=== PATIENT | female | born 1985 | race Caucasian/White ===

== ENCOUNTER 2016-07-15 02:14 | Emergency (ER) | payer BC ==
[2016-07-15 03:02] LABS: Appearance,Urine Clear (Clear); Bilirubin,Urine Negative (Negative); Glucose,Urine (UA) Negative (Negative); Ketones,Urine Negative (Negative); Leukocyte Esterase,Urine Negative (Negative); Nitrite,Urine Negative (Negative); PH, Urine 6.5 (5.0-8.0); Protein,Urine Negative (Negative); UA Billing (MACRO vs. MICRO) CHEM; Urobilinogen,Urine <2.0 mg/dL (<2.0)
[2016-07-15 03:03] LABS: Basophils # (A) 0.2 k/uL (0-0.2); Basophils % (A) 1 %; CH 30.2; CHCM 33.7; Eosinophils # (A) 1.7 k/uL (0-0.7); Eosinophils % (A) 12 %; HCT 44.6 % (34.0-46.0); HDW 2.48; HGB 14.4 gm/dL (11.4-16.0); Luc # (Auto) 0.27; Luc % (Auto) 2; Lymphocytes # (A) 3.5 k/uL (1.0-4.8); Lymphocytes % (A) 25 %; MCH 29.1 pg (25.0-35.0); MCHC 32.4 g/dL (31.0-37.0); MCV 89.9 fL (80.0-100.0); Mean Platelet Volume 7.2; Monocytes # (A) 0.6 k/uL (0-1.0); Monocytes % (A) 4 %; Neutrophils # (A) 7.8 k/uL (1.3-7.7); Neutrophils % (A) 56 %; RBC 4.96 m/uL (3.80-5.40); RDW 13.4 % (11.5-15.5); WBC (Perox) 13.67
[2016-07-15] MEDS ORDERED: SODIUM CHLORIDE 0.9% 1,000 ML IV ONE (03:03)
[2016-07-15] MEDS ORDERED: ACETAMINOPHEN IV (For NPO) 1,000 MG in EMPTY BAG 1 BAG IVPB STA (03:03)
[2016-07-15 03:10] LABS: ALT 23 U/L (9-52); AST 18 U/L (14-36); Alkaline Phosphatase 62 U/L (38-126); Amylase 72 U/L (30-110); Anion Gap 10 mmol/L; Blood Urea Nitrogen 16 mg/dL (7-17); Calcium 10.7 mg/dL (8.4-10.2); Carbon Dioxide 26 mmol/L (22-30); Chloride 106 mmol/L (98-107); Glucose 91 mg/dL (74-99); Non-African American GFR(MDRD) >60 (>60 ml/min/1.73 sqM); Potassium 4.1 mmol/L (3.5-5.1); Sodium 142 mmol/L (137-145); Total Bilirubin 0.3 mg/dL (0.2-1.3); Total Protein 7.4 g/dL (6.3-8.2)
--- NOTE | 2016-07-15 03:16 | ED ---
Abdominal Pain HPI - General Source: patient, RN notes reviewed Mode of arrival: ambulatory Limitations: no limitations <Oliva Jones - Last Filed: 07/15/16 04:24> <Tiburcio Barnett - Last Filed: 07/15/16 06:07> - General Chief Complaint: Abdominal Pain Stated Complaint: poss galbladder Time Seen by Provider: 07/15/16 02:40 - History of Present Illness Initial Comments: Patient is a 30-year-old female presents to the emergency room for evaluation of abdominal pain. Patient states she began having abdominal pain on and off for the past few weeks. Patient states she began having worsening abdominal pain in her right upper quadrant after eating a blooming onion from [facility] Thursday night. Patient states the pain did subside after while. Patient states the pain came back tonight's. Patient states that she did have little [employer] pizza this evening for dinner. Patient states that the pain woke her up from her sleep and has not subsided. Patient states the pain is slightly lessened since she's been here. Patient states having 6 out of 10 constant right upper quadrant pain. Patient denies any known history of gallbladder issues or gallbladder stones. Patient denies nausea or vomiting. Patient denies constipation or diarrhea. Patient denies any discoloration of the stools. Patient denies headache or dizziness. Patient denies chest pain or shortness of breath. (Oliva Jones) - Related Data Home Medications Medication Instructions Recorded Confirmed Pnv with Ca,No.72/Iron/FA 1 tab PO DAILY 03/04/14 09/06/14 [ Plus Multivitamin Tab] Albuterol Inhaler [Ventolin 1 - 2 puff INHALATION Q6HR PRN 09/06/14 09/06/14 Inhaler] Albuterol Nebulized [Ventolin 2.5 mg INHALATION RT-Q4H PRN 09/06/14 09/06/14 Nebulized] Cholecalciferol [Vitamin D3] 5,000 unit PO DAILY 09/06/14 09/06/14 Norethindrone 0.35 mg PO DAILY 09/06/14 09/06/14 [place] 2 cap PO BID 09/06/14 09/06/14 Previous Rx's Medication Instructions Recorded Albuterol Nebulized [Ventolin 2.5 mg INHALATION RT-QID #120 nebu 09/10/14 Nebulized] Bisacodyl [Dulcolax] 5 mg PO DAILY PRN #0 tablet. 09/10/14 Budesonide [Pulmicort] 0.5 mg INHALATION RT-BID PRN #60 09/10/14 nebu Enoxaparin [Lovenox] 120 mg SQ Q12H #14 syringe 09/10/14 Famotidine [Pepcid] 20 mg PO BID #60 tab 09/10/14 Montelukast [Singulair] 10 mg PO HS #30 tab 09/10/14 Warfarin [Coumadin] 5 mg PO DAILY@1800 #60 tab 09/10/14 predniSONE 10 mg PO DAILY #60 tab 09/10/14 Amoxic-Pot Clav 875-125Mg 1 tab PO Q12HR #20 tablet 07/15/16 [Augmentin 875-125] Hydrocodone/Acetaminophen [[place] 1 each PO Q6HR PRN #20 tab 07/15/16 5-325] Ibuprofen [Motrin] 800 mg PO Q6HR PRN #20 tab 07/15/16 Allergies Allergy/AdvReac Type Severity Reaction Status Date / Time azithromycin [From Zithromax] Allergy Rash/Hives Verified 07/15/16 02:20 Review of Systems ROS Other: All systems not noted in ROS Statement are negative. <Oliva Jones - Last Filed: 07/15/16 04:24> ROS Other: All systems not noted in ROS Statement are negative. <Tiburcio Barnett - Last Filed: 07/15/16 06:07> ROS Statement: Those systems with pertinent positive or pertinent negative responses have been documented in the HPI. Past Medical History Past Medical History: Asthma, Pulmonary Embolus (PE) History of Any Multi-Drug Resistant Organisms: None Reported Additional Past Surgical History / Comment(s): d & c 2011 Past Anesthesia/Blood Transfusion Reactions: No Reported Reaction Past Psychological History: No Psychological Hx Reported Smoking Status: Former smoker Past Alcohol Use History: None Reported Past Drug Use History: None Reported - Past Family History Mother Family Medical History: Cancer <Oliva Jones - Last Filed: 07/15/16 04:24> General Exam Limitations: no limitations General appearance: alert, in no apparent distress Head exam: Present: atraumatic, normocephalic, normal inspection Eye exam: Present: normal appearance ENT exam: Present: normal exam Neck exam: Present: normal inspection Respiratory exam: Present: normal lung sounds bilaterally. Absent: respiratory distress Cardiovascular Exam: Present: regular rate, normal rhythm, normal heart sounds GI/Abdominal exam: Present: soft, tenderness (Right upper quadrant), normal bowel sounds. Absent: distended, guarding, rebound, rigid Extremities exam: Present: normal inspection Back exam: Present: normal inspection Neurological exam: Present: alert, oriented X3, CN II-XII intact, normal gait Psychiatric exam: Present: normal affect, normal mood Skin exam: Present: warm, dry, intact, normal color. Absent: rash <Oliva Jones - Last Filed: 07/15/16 04:24> <Tiburcio Barnett - Last Filed: 07/15/16 06:07> - General Exam Comments Initial Comments: Sitting in exam room, no acute distress. (Oliva Jones) Course <Oliva Jones - Last Filed: 07/15/16 04:24> <Tiburcio Barnett - Last Filed: 07/15/16 06:07> Vital Signs 07/15/16 07/15/16 02:17 05:35 Temperature 97.7 F 97.0 F L Pulse Rate 80 69 Respiratory 18 16 Rate Blood Pressure 137/98 130/83 O2 Sat by Pulse 98 96 Oximetry - Reevaluation(s) Reevaluation #1: 07/15/16 05:48 I did reevaluate the patient she states she is feeling much improved though she still has right upper quadrant tenderness. I did recommend admission with surgical consultation. Patient does not want to stay. (Tiburcio Barnett) Medical Decision Making - Lab Data Result diagrams: 07/15/16 02:48 07/15/16 02:48 <Oliva Jones - Last Filed: 07/15/16 04:24> - Lab Data Result diagrams: 07/15/16 02:48 07/15/16 02:48 - Radiology Data Radiology results: report reviewed (I did review the imaging and report. There is evidence of gallstones but no evidence of any thickening of the gallbladder wall or common bile duct dilatation. There was evidence for sonographic Jimenez sign ), image reviewed <Tiburcio Barnett - Last Filed: 07/15/16 06:07> - Medical Decision Making Patient is a 30-year-old female presents emergency room for evaluation of right upper quadrant pain. White count elevated. Liver enzymes within normal limits. Ultrasound results pending. Case discussed the past on to Dr. Barnett at 4:25 AM. (Oliva Jones) - Lab Data Lab Results 07/15/16 07/15/16 07/15/16 Range/Units 02:48 02:48 02:48 WBC (3.8-10.6) k/uL RBC (3.80-5.40) m/uL Hgb (11.4-16.0) gm/dL Hct (34.0-46.0) % MCV (80.0-100.0) fL MCH (25.0-35.0) pg MCHC (31.0-37.0) g/dL RDW (11.5-15.5) % Plt Count (150-450) k/uL Neutrophils % % Lymphocytes % % Monocytes % % Eosinophils % % Basophils % % Neutrophils # (1.3-7.7) k/uL Lymphocytes # (1.0-4.8) k/uL Monocytes # (0-1.0) k/uL Eosinophils # (0-0.7) k/uL Basophils # (0-0.2) k/uL Sodium 142 (137-145) mmol/L Potassium 4.1 (3.5-5.1) mmol/L Chloride 106 (98-107) mmol/L Carbon Dioxide 26 (22-30) mmol/L Anion Gap 10 mmol/L BUN 16 (7-17) mg/dL Creatinine 0.80 (0.52-1.04) mg/dL Est GFR (MDRD) Af Amer >60 (>60 ml/min/1.73 sqM) Est GFR (MDRD) Non-Af >60 (>60 ml/min/1.73 sqM) Glucose 91 (74-99) mg/dL Calcium 10.7 H (8.4-10.2) mg/dL Total Bilirubin 0.3 (0.2-1.3) mg/dL AST 18 (14-36) U/L ALT 23 (9-52) U/L Alkaline Phosphatase 62 (38-126) U/L Total Protein 7.4 (6.3-8.2) g/dL Albumin 4.1 (3.5-5.0) g/dL Amylase 72 (30-110) U/L Lipase 95 (23-300) U/L Urine Color Light Yellow Urine Appearance Clear (Clear) Urine pH 6.5 (5.0-8.0) Ur Specific [place] 1.010 (1.001-1.035) Urine Protein Negative (Negative) Urine Glucose (UA) Negative (Negative) Urine Ketones Negative (Negative) Urine Blood Negative (Negative) Urine Nitrite Negative (Negative) Urine Bilirubin Negative (Negative) Urine Urobilinogen <2.0 (<2.0) mg/dL Ur Leukocyte Esterase Negative (Negative) Urine HCG, Qual Not Detected (Not Detectd) 07/15/16 Range/Units 02:48 WBC 14.0 H (3.8-10.6) k/uL RBC 4.96 (3.80-5.40) m/uL Hgb 14.4 (11.4-16.0) gm/dL Hct 44.6 (34.0-46.0) % MCV 89.9 (80.0-100.0) fL MCH 29.1 (25.0-35.0) pg MCHC 32.4 (31.0-37.0) g/dL RDW 13.4 (11.5-15.5) % Plt Count 264 (150-450) k/uL Neutrophils % 56 % Lymphocytes % 25 % Monocytes % 4 % Eosinophils % 12 % Basophils % 1 % Neutrophils # 7.8 H (1.3-7.7) k/uL Lymphocytes # 3.5 (1.0-4.8) k/uL Monocytes # 0.6 (0-1.0) k/uL Eosinophils # 1.7 H (0-0.7) k/uL Basophils # 0.2 (0-0.2) k/uL Sodium (137-145) mmol/L Potassium (3.5-5.1) mmol/L Chloride (98-107) mmol/L Carbon Dioxide (22-30) mmol/L Anion Gap mmol/L BUN (7-17) mg/dL Creatinine (0.52-1.04) mg/dL Est GFR (MDRD) Af Amer (>60 ml/min/1.73 sqM) Est GFR (MDRD) Non-Af (>60 ml/min/1.73 sqM) Glucose (74-99) mg/dL Calcium (8.4-10.2) mg/dL Total Bilirubin (0.2-1.3) mg/dL AST (14-36) U/L ALT (9-52) U/L Alkaline Phosphatase (38-126) U/L Total Protein (6.3-8.2) g/dL Albumin (3.5-5.0) g/dL Amylase (30-110) U/L Lipase (23-300) U/L Urine Color Urine Appearance (Clear) Urine pH (5.0-8.0) Ur Specific [place] (1.001-1.035) Urine Protein (Negative) Urine Glucose (UA) (Negative) Urine Ketones (Negative) Urine Blood (Negative) Urine Nitrite (Negative) Urine Bilirubin (Negative) Urine Urobilinogen (<2.0) mg/dL Ur Leukocyte Esterase (Negative) Urine HCG, Qual (Not Detectd) Disposition <Oliva Jones - Last Filed: 07/15/16 04:24> <Tiburcio Barnett - Last Filed: 07/15/16 06:07> Clinical Impression: Cholelithiasis, Cholecystitis, Abdominal pain Disposition: HOME SELF-CARE Condition: Stable Prescriptions: Amoxic-Pot Clav 875-125Mg [Augmentin 875-125] 1 tab PO Q12HR #20 tablet Hydrocodone/Acetaminophen [[place] 5-325] 1 each PO Q6HR PRN #20 tab PRN Reason: Pain Ibuprofen [Motrin] 800 mg PO Q6HR PRN #20 tab PRN Reason: Pain
--- NOTE | 2016-07-15 04:50 | US ---
EXAM: US Abdomen limited. CLINICAL HISTORY: Reason: Pain TECHNIQUE: Real-time ultrasound of the abdomen (complete) with image documentation. COMPARISON: No relevant prior studies available. FINDINGS: Liver: Liver measures 18.2 cm. No intrahepatic bile duct dilation. Gallbladder: Shadowing echogenic foci in the gallbladder consistent with gallstones. No gallbladder wall thickening. Positive sonographic Jimenez's sign noted by the english faculty member. Common bile duct: Common bile duct measures 4 mm. No stones. No dilation. Pancreas: Visualized pancreas, unremarkable. Tail of the pancreas obscured by overlying bowel gas. Kidneys: Right kidney measures 11 cm. No stones. No hydronephrosis. IMPRESSION: 1. Mild hepatomegaly. 2. No ductal dilatation. 3. Cholelithiasis. Positive sonographic Jimenez's sign, nonspecific in the absence of gallbladder wall thickening and additional sonographic findings. Follow-up HIDA scan as indicated.
[2016-07-15 05:39] VITALS: BP 130/83; PULSE 69; RESP 16; TEMP 97
== END 2016-07-15 06:23 | disposition home or self-care (01) ==
LOC: EC 02:14
DX: K80.10 Calculus of gallbladder with chronic cholecystitis without obstruction (principal); Z87.891 Personal history of nicotine dependence; Z79.899 Other long term (current) drug therapy; Z88.1 Allergy status to other antibiotic agents
CPT/HCPCS: 99284; 96374; 96361; 36415; 80053; 82150; 83690; 85025; 81003; 81025; 76705; J0131

== ENCOUNTER 2016-10-11 13:01 | Emergency (ER) | payer BC, OTHER ==
[2016-10-11 13:15] VITALS: BP 119/69; PULSE 76; RESP 16
[2016-10-11] MEDS ORDERED: KETOROLAC 60 MG/2 ML VIAL IM STA (14:09)
[2016-10-11] MEDS ORDERED: DIAZEPAM 5 MG TAB PO STA (14:09)
--- NOTE | 2016-10-11 14:13 | ED ---
General Adult HPI - General Chief complaint: Back Pain/Injury Stated complaint: left hip pain-[facility] Time Seen by Provider: 10/11/16 14:00 Source: patient, RN notes reviewed Mode of arrival: wheelchair Limitations: no limitations - History of Present Illness Initial comments: Patient 31-year-old female who presents emergency room today with chief complaint of increased lower back pain times one day. Does admit that she was at work yesterday when she lifted up a dog to set him down. She states she noticed some increased pain in her lower back. She states today when she was at work again she was feeling increased pain in her lower back since radiating down the left leg to back of the left knee. Patient does admit to a history of scoliosis and doesn't admit to some back problems. She denies any bowel or bladder incontinence retention. Denies any saddle anesthesia. Patient states she try to [place] last night and an ibuprofen approximate 6 AM this morning. States pain is worse with movements. Denies any other complaints or associated symptoms. Patient denies any recent fever, chills, shortness of breath, chest pain, abdominal pain, nausea or vomiting, dysuria or hematuria, constipation or diarrhea, headaches or visual changes, or any other complaints. - Related Data Home Medications Medication Instructions Recorded Confirmed Pnv with Ca,No.72/Iron/FA 1 tab PO DAILY 03/04/14 09/06/14 [ Plus Multivitamin Tab] Albuterol Inhaler [Ventolin 1 - 2 puff INHALATION Q6HR PRN 09/06/14 09/06/14 Inhaler] Albuterol Nebulized [Ventolin 2.5 mg INHALATION RT-Q4H PRN 09/06/14 09/06/14 Nebulized] Cholecalciferol [Vitamin D3] 5,000 unit PO DAILY 09/06/14 09/06/14 Norethindrone 0.35 mg PO DAILY 09/06/14 09/06/14 Phenug[place] 2 cap PO BID 09/06/14 09/06/14 Previous Rx's Medication Instructions Recorded Albuterol Nebulized [Ventolin 2.5 mg INHALATION RT-QID #120 nebu 09/10/14 Nebulized] Bisacodyl [Dulcolax] 5 mg PO DAILY PRN #0 tablet. 09/10/14 Budesonide [Pulmicort] 0.5 mg INHALATION RT-BID PRN #60 09/10/14 nebu Enoxaparin [Lovenox] 120 mg SQ Q12H #14 syringe 09/10/14 Famotidine [Pepcid] 20 mg PO BID #60 tab 09/10/14 Montelukast [Singulair] 10 mg PO HS #30 tab 09/10/14 Warfarin [Coumadin] 5 mg PO DAILY@1800 #60 tab 09/10/14 predniSONE 10 mg PO DAILY #60 tab 09/10/14 Amoxic-Pot Clav 875-125Mg 1 tab PO Q12HR #20 tablet 07/15/16 [Augmentin 875-125] Hydrocodone/Acetaminophen [[place] 1 each PO Q6HR PRN #20 tab 07/15/16 5-325] Ibuprofen [Motrin] 800 mg PO Q6HR PRN #20 tab 07/15/16 Cyclobenzaprine [Flexeril] 10 mg PO TID #20 tab 10/11/16 Ibuprofen [Motrin] 800 mg PO Q6HR #30 tab 10/11/16 Allergies Allergy/AdvReac Type Severity Reaction Status Date / Time azithromycin [From Zithromax] Allergy Rash/Hives Verified 10/11/16 13:15 Review of Systems ROS Statement: Those systems with pertinent positive or pertinent negative responses have been documented in the HPI. ROS Other: All systems not noted in ROS Statement are negative. Past Medical History Past Medical History: Asthma, Pulmonary Embolus (PE) Additional Past Medical History / Comment(s): gallstones History of Any Multi-Drug Resistant Organisms: None Reported Additional Past Surgical History / Comment(s): d & c 2011 Past Anesthesia/Blood Transfusion Reactions: No Reported Reaction Past Psychological History: No Psychological Hx Reported Smoking Status: Former smoker Past Alcohol Use History: Occasional Past Drug Use History: None Reported - Past Family History Mother Family Medical History: Cancer General Exam - General Exam Comments Initial Comments: General: The patient is awake and alert, in no distress, and does not appear acutely ill. Eye: Pupils are equal, round and reactive to light, extra-ocular movements are intact. No nystagmus. There is normal conjunctiva bilaterally. No signs of icterus. Ears, nose, mouth and throat: There are moist mucous membranes and no oral lesions. Neck: The neck is supple, there is no tenderness or JVD. Cardiovascular: There is a regular rate and rhythm. No murmur, rub or gallop is appreciated. Respiratory: Lungs are clear to auscultation, respirations are non-labored, breath sounds are equal. No wheezes, stridor, rales, or rhonchi. Musculoskeletal: Normal ROM. Normal appearance of the thoracic and lumbar spine with no step-offs forms appreciated. Mild tenderness lower lumbar from L4 to S1. Increased paravertebral tenderness on the left side of the lower lumbar. Strength 5/5. Sensation intact. Pulses equal bilaterally 2+. Neurological: A&O x 3. CN II-XII intact, There are no obvious motor or sensory deficits. Coordination appears grossly intact. Speech is normal. Skin: Skin is warm and dry and no rashes or lesions are noted. Psychiatric: Cooperative, appropriate mood & affect, normal judgment. Limitations: no limitations Course Vital Signs 10/11/16 13:13 Pulse Rate 76 Respiratory 16 Rate Blood Pressure 119/69 O2 Sat by Pulse 99 Oximetry Medical Decision Making - Medical Decision Making Patient 31-year-old who presents for lower back pain after injury at work yesterday. No bowel or bladder incontinence retention. No saddle anesthesia. X-rays negative for any acute abnormalities. Patient given Toradol and Valium here in the emergency room. Patient will be discharged on continued on anti- inflammatories, and Flexeril as muscle relaxant. Advised to follow-up with family doctor over the next 2 days if symptoms are unimproved and discussed about MRI. Disposition Clinical Impression: Acute low back pain Disposition: HOME SELF-CARE Condition: Good Instructions: Acute Low Back Pain (ED) Additional Instructions: Please use medication as discussed. Please follow-up with family doctor in the next 2 days of symptoms have not improved. Please return to emergency room if the symptoms increase or worsen or for any other concerns. Prescriptions: Cyclobenzaprine [Flexeril] 10 mg PO TID #20 tab Ibuprofen [Motrin] 800 mg PO Q6HR #30 tab Referrals: Chandan Lambert MD [Primary Care Provider] - 1-2 days Time of Disposition: 14:49
--- NOTE | 2016-10-11 14:41 | XR ---
EXAMINATION TYPE: XR lumbar spine 2 or 3V DATE OF EXAM: 10/11/2016 CLINICAL HISTORY: Low back pain after injury at work yesterday. TECHNIQUE: Frontal and lateral images of the lumbar spine are obtained. COMPARISON: None FINDINGS: There are 5 lumbar type vertebral bodies identified. The lumbar spine shows satisfactory alignment without evidence of acute fracture or dislocation. There is mild disc space narrowing L5-S1 level otherwise vertebral body heights and disk space heights are within normal limits. The overly ing soft tissue appears unremarkable. IMPRESSION: No acute fracture or dislocation is seen in the lumbar spine.
== END 2016-10-11 14:58 | disposition home or self-care (01) ==
LOC: EC 13:01
DX: S39.92XA Unspecified injury of lower back, initial encounter (principal); M54.5 Low back pain; M25.552 Pain in left hip; M25.562 Pain in left knee; Z87.891 Personal history of nicotine dependence; X50.9XXA Other and unspecified overexertion or strenuous movements or postures, initial encounter; Y93.89 Activity, other specified; Y92.69 Other specified industrial and construction area as the place of occurrence of the external cause; Y99.0 Civilian activity done for income or pay
CPT/HCPCS: 72100; 99283; 96372; J1885

== ENCOUNTER → 2016-10-31 | Day surgery (SDC) | payer BC ==
[2016-10-29 12:42] VITALS: BMI 37.5
[~2016-10-31] MED LIST: ACETAMINOPHEN IV (For NPO) 1,000 MG in EMPTY BAG 1 BAG IVPB ONE; BUPIVACAINE (PF) 0.5% 30 ML VIAL SQ ONE; DEXAMETHASONE SOD PHOSPHATE 10 MG/ML 1 ML VIAL IV ONE; GLYCOPYRROLATE 0.2 MG/ML 2 ML VIAL ONE; HEPARIN SODIUM,PORCINE 5,000 UNIT/ML 1 ML VIAL SQ ONE; HYDROcodone/APAP 5-325MG 1 EACH TAB PO ONE; HYDROcodone/APAP 5-325MG 1 EACH TAB PO PRN; KETOROLAC 30 MG/ML 1 ML VIAL ONE; LACTATED RINGERS 1,000 ML IV ONE; LACTATED RINGERS 1,000 ML IV SCH; LIDOCAINE 1% 20 ML VIAL (10MG/ML) FOR IV START INTRADERMA PRN; LIDOCAINE 1% INJ 10MG/ML (20 ML MDV) ONE; MIDAZOLAM 2 MG/2 ML VIAL ONE; NALOXONE 0.4 MG/ML 1 ML VIAL IV PRN; NEOSTIGMINE 1 MG/ML 10 ML VIAL ONE; ONDANSETRON 4 MG/2 ML VIAL IVP ONE; ONDANSETRON 4 MG/2 ML VIAL IVP PRN; PROPOFOL 10 MG/ML 20 ML VIAL IV ONE; ROCURONIUM BROMIDE 10 MG/ML 10 ML VIAL IV ONE; SCOPOLAMINE 1.5MG/72HR PATCH TRANSDERM ONE; SUCCINYLCHOLINE CHLORIDE VIAL 200 MG/10 ML VIAL IV ONE; ceFAZolin 2 GM in SODIUM CHLORIDE 0.9% 100 ML IVPB ONE; fentaNYL (PF) 50 MCG/ML 2 ML AMP ONE
--- NOTE | 2016-10-31 08:05 | P.GSHP ---
History of Present Illness H&P Date: 10/31/16 CHIEF COMPLAINT: Cholecystitis HISTORY OF PRESENT ILLNESS: The patient is a 31-year-old female who presents with history of epigastric including right upper quadrant abdominal pain. She underwent diagnostic studies for her gallbladder. Separately her clinical picture was consistent with cholecystitis. Now she presents for surgical intervention. PAST MEDICAL HISTORY: Please see list PAST SURGICAL HISTORY: Please see list MEDICATIONS: Please see list ALLERGIES: Denies. SOCIAL HISTORY: No illicit drug use or recent tobacco use FAMILY HISTORY: Pertinent for gallbladder disease REVIEW OF ORGAN SYSTEMS: CONSTITUTIONAL: No reports of fevers or chills. HEENT: Denies any troubles with the vision or hearing. ENDOCRINE: No reports of hypothyroidism. No diabetes. RESPIRATORY: No recent pneumonias. CARDIOVASCULAR: Denies chest pain or palpitations GI: No blood in stools or constipation. MUSCULOSKELETAL: Has joint pain including back pain. NEURO: No seizure disorders or headaches. No recent stroke. PSYCH: No depression or suicidal ideation. HEMATOLOGIC: No personal or family history of DVTs or pulmonary emboli. PHYSICAL EXAM: VITAL SIGNS: Afebrile vital signs stable GENERAL: Well-developed pleasant in no acute distress. HEENT: No scleral icterus. Extraocular movements grossly intact. Moist buccal mucosa. NECK: Supple without lymphadenopathy. CHEST: Unlabored respirations. Equal bilateral excursions. CARDIOVASCULAR: Regular rate regular rhythm rhythm. Distal 2+ pulses. ABDOMEN: Soft, nondistended. Tender along the epigastrium and right upper quadrant. MUSCULOSKELETAL: No clubbing, cyanosis, or edema. NEURO: Cranial nerves II to XII within normal limits. No focal or lateralizing signs. PSYCH: Alert and oriented to person, place and time. ASSESSMENT: 1. Epigastric and right upper quadrant abdominal pain 2. Chronic cholecystitis 3. Symptomatic gallstones. PLAN: 1. Will need a laparoscopic cholecystectomy possible open. Benefits and risks were described. 2. Heparin for DVT prophylaxis 5000 units. 3. Antibiotic prophylaxis. 4. Recommend robotic approach assisted laparoscopic cholecystectomy. Past Medical History Past Medical History: Asthma, Pulmonary Embolus (PE) Additional Past Medical History / Comment(s): PE 2014. HEARTBURN NOW, ALONG W/ Gallstones. PINCHED SCIATIC NERVE LT HIP, SCOLIOSIS. History of Any Multi-Drug Resistant Organisms: None Reported Additional Past Surgical History / Comment(s): D & C 2011 Past Anesthesia/Blood Transfusion Reactions: No Reported Reaction Smoking Status: Former smoker - Past Family History Father Family Medical History: Cancer Mother Family Medical History: Cancer Medications and Allergies Home Medications Medication Instructions Recorded Confirmed Type Albuterol Inhaler [Ventolin 1 - 2 puff INHALATION Q6HR PRN 09/06/14 10/29/16 History Inhaler] Beclomethasone Dip 80 Mcg/Puff 2 puff INHALATION BID 10/29/16 10/29/16 History [Qvar 80 mcg] Cyclobenzaprine [Flexeril] 10 mg PO TID PRN 10/29/16 10/29/16 History Loratadine [Claritin] 10 mg PO DAILY 10/29/16 10/29/16 History Allergies Allergy/AdvReac Type Severity Reaction Status Date / Time azithromycin [From Zithromax] Allergy Rash/Hives Verified 10/29/16 12:21
[2016-10-31 11:01] LABS: Basophils # (A) 0.1 k/uL (0-0.2); Basophils % (A) 1 %; CH 29.9; CHCM 33.3; Eosinophils # (A) 0.5 k/uL (0-0.7); Eosinophils % (A) 6 %; HDW 2.38; HGB 15.3 gm/dL (11.4-16.0); Luc # (Auto) 0.17; Luc % (Auto) 2; Lymphocytes # (A) 2.8 k/uL (1.0-4.8); Lymphocytes % (A) 28 %; MCH 30.6 pg (25.0-35.0); MCV 90.1 fL (80.0-100.0); Mean Platelet Volume 7.2; Monocytes # (A) 0.4 k/uL (0-1.0); Monocytes % (A) 4 %; Neutrophils # (A) 5.8 k/uL (1.3-7.7); Neutrophils % (A) 59 %; RBC 4.99 m/uL (3.80-5.40); WBC 9.7 k/uL (3.8-10.6); WBC (Perox) 9.32
[2016-10-31 11:10] LABS: ALT 26 U/L (9-52); AST 21 U/L (14-36); Alkaline Phosphatase 67 U/L (38-126); Anion Gap 8 mmol/L; Blood Urea Nitrogen 12 mg/dL (7-17); Calcium 9.8 mg/dL (8.4-10.2); Carbon Dioxide 26 mmol/L (22-30); Chloride 106 mmol/L (98-107); Glucose 73 mg/dL (74-99); Non-African American GFR(MDRD) >60 (>60 ml/min/1.73 sqM); Potassium 4.2 mmol/L (3.5-5.1); Sodium 140 mmol/L (137-145); Total Bilirubin 0.7 mg/dL (0.2-1.3); Total Protein 7.6 g/dL (6.3-8.2)
--- NOTE | 2016-10-31 14:10 | P.PCN ---
Date of Procedure: 10/31/16 Preoperative Diagnosis: Cholecystitis Postoperative Diagnosis: Same Procedure(s) Performed: Robotic-assisted laparoscopic cholecystectomy, multiport Implants: Anesthesia: GETA, local Surgeon: Sherri Garcia Estimated Blood Loss (ml): 5 Pathology: other (Gallbladder) Condition: stable Disposition: floor Indications for Procedure: Operative Findings: Intrahepatic gallbladder with acute angle of the cystic duct adding complexity to her case Description of Procedure:
[2016-10-31 14:52] VITALS: TEMP 97.6
[2016-10-31] MEDS: HYDROmorphone 1 MG/ML 1 ML SYRINGE IVP PRN ×2 (14:56→15:01)
[2016-10-31 17:25] VITALS: PULSE 90; RESP 18
[2016-10-31 18:18] VITALS: BP 121/72
--- NOTE | 2016-11-02 22:40 | P.OP ---
Date of Procedure: 10/31/16 Preoperative Diagnosis: Postoperative Diagnosis: Procedure(s) Performed: Implants: Indications for Procedure: Operative Findings: Description of Procedure: SURGEON: EDIS GARCIA MD CERTIFIED SURGICAL FIRST ASSISTANT: Palak Hernandez PREOPERATIVE DIAGNOSES: 1. Chronic cholecystitis. 2. Symptomatic gallstones. 3. Morbid obesity due to excess calories. 4. Body mass index 37.7 5. Personal history of pulmonary embolism. 6. Right upper quadrant abdominal pain. 7. Asthma. POSTOPERATIVE DIAGNOSES: 1. Chronic cholecystitis. 2. Symptomatic gallstones. 3. Morbid obesity due to excess calories. 4. Body mass index 37.7 5. Personal history of pulmonary embolism. 6. Right upper quadrant abdominal pain. 7. Asthma. OPERATION: Robotic-assisted laparoscopic cholecystectomy, multiport ESTIMATED BLOOD LOSS: 5 mL. SPECIMENS REMOVED: Gallbladder. COMPLICATIONS: None. OPERATIVE FINDINGS: 1. Intrahepatic gallbladder with acute angle of the cystic duct adding complexity to her case INDICATIONS: The patient is a 31-year-old female who presents with symptomatic gallstones and chronic cholelcystitis. Surgical intervention with a laparoscopic cholecystectomy was described at length including injury to the biliary tree, bleeding, infection, need for further surgery. Informed consent was obtained. Robotic assisted laparoscopic approach was described. Benefits and risks of the procedure including but not limited to bleeding, infection, injury to the biliary tree was described. Informed consent was obtained. DESCRIPTION OF PROCEDURE: Patient was brought to the operating room, placed in supine position. After general induction, the abdomen had been prepped and draped in standard sterile fashion. The robotic da Dinesh SI system was primed. After a timeout protocol was performed, the patient had been prepped and draped in standard sterile fashion. The robot was docked along the right lateral abdomen. The patient was repositioned in reverse Trendelenburg position. Please note prior to docking of the robot; however, a 5 mm 0 degrees laparoscopic trocar entry was performed along the left upper quadrant. Next, two 8 mm robotic ports were placed along the right upper abdomen. The camera 12-mm port was maintained along the epigastrium. Another 8 mm port was placed along the left upper abdominal wall after exchanging the 5 mm port. Please note that the ports were placed at least 15 cm to 20 cm away from the target anatomy of the gallbladder. Using a grasper for arm 3, a long dissecting grasper for arm 2, including hook cautery for arm 1, the robotic system was docked and primed as described. Instruments were interchanged by the assistant track and field coach including hook cautery, Bovie cautery scissors and clip appliers. I had sat at the console. Adhesions were identified along the infundibulum of the gallbladder and addressed using hook cautery including blunt dissection with a long forceps grasper. The gallbladder fundus was retracted over the dome of the liver. Initial attention was brought to the infundibulum which was gently retracted in the inferior lateral approach. Using a long forceps grasper, the cystic duct including the cystic artery was carefully skeletonized. Using a clip wheel press clerk 2 clips were placed proximally, and 2 clip was placed distally along the cystic duct and then cut with scissors. Again care was taken to avoid any injury to the biliary tree as the common bile duct was clearly visualized during this portion of dissection. Next, the cystic artery was clipped twice proximally, once distally and then cauterized the cut. Electro-Bovie cautery was used to remove the gallbladder from the hepatic fossa without decompression of the gallbladder. Hemostasis was checked and found to be adequate. The robot was undocked. I re-scrubbed into the case. Using a 10 mm Endo Catch bag via the 12 mm port, the specimen was removed from the abdominal cavity. The 12 mm port site was oversewn using 0 Vicryl including a Ifeanyi Cannon as well. All pneumoperitoneum instruments were evacuated from the abdominal cavity. The incisions were reapproximated using 4-0 Monocryl in an interrupted subcuticular fashion. Please note along the trocar sites, local anesthetic was placed as a field block prior to insertion of all instruments. Dermabond was applied to the skin. At the end of the procedure needle, sponge, and instrument count had been verified correct by the medical surgical tech. The patient was transferred to postanesthesia care unit in stable condition. Plan - Discharge Summary New Discharge Prescriptions: New HYDROcodone/APAP 5-325MG [[place] 5-325] 1 tab PO Q6HR PRN #30 tab PRN Reason: Pain Discontinued Ibuprofen [Motrin] 800 mg PO Q6HR PRN #20 tab PRN Reason: Pain No Action Albuterol Inhaler [Ventolin Inhaler] 1 - 2 puff INHALATION Q6HR PRN PRN Reason: Shortness Of Breath Montelukast [Singulair] 10 mg PO HS #30 tab Loratadine [Claritin] 10 mg PO DAILY Cyclobenzaprine [Flexeril] 10 mg PO TID PRN PRN Reason: HIP PAIN Beclomethasone Dip 80 Mcg/Puff [Qvar 80 mcg] 2 puff INHALATION BID Discharge Medication List Albuterol Inhaler [Ventolin Inhaler] 1 - 2 puff INHALATION Q6HR PRN 09/06/14 [ History] Montelukast [Singulair] 10 mg PO HS #30 tab 09/10/14 [Rx] Beclomethasone Dip 80 Mcg/Puff [Qvar 80 mcg] 2 puff INHALATION BID 10/29/16 [ History] Cyclobenzaprine [Flexeril] 10 mg PO TID PRN 10/29/16 [History] Loratadine [Claritin] 10 mg PO DAILY 10/29/16 [History] HYDROcodone/APAP 5-325MG [[place] 5-325] 1 tab PO Q6HR PRN #30 tab 10/31/16 [Rx] Follow up Appointment(s)/Referral(s): Edis Garcia MD [STAFF PHYSICIAN] - 11/04/16 ([facility] [place] [facility]) Patient Instructions/Handouts: *Surgery [facility] - (Anesthesia) Discharge Instructions Outpatient Surgery, Low Fat Diet (DC), Laparoscopic Cholecystectomy (DC) Activity/Diet/Wound Care/Special Instructions: Low-fat diet. No lifting over 4 pounds. May shower. Discharge Disposition: HOME SELF-CARE
== END | disposition home or self-care (01) ==
LOC: OR 08:47
PROVIDERS: ATTEND Surgery Plastic and Reconstructive Surgery
DX: K80.10 Calculus of gallbladder with chronic cholecystitis without obstruction (principal); Z86.711 Personal history of pulmonary embolism; Z87.891 Personal history of nicotine dependence; J44.9 Chronic obstructive pulmonary disease, unspecified; E66.01 Morbid (severe) obesity due to excess calories; Z68.37 Body mass index [BMI] 37.0-37.9, adult; Z79.51 Long term (current) use of inhaled steroids; Z79.899 Other long term (current) drug therapy; Z88.1 Allergy status to other antibiotic agents
CPT/HCPCS: 47562; S2900; 80053; 81025; 85025; 88304

== ENCOUNTER 2017-01-06 13:57 | Emergency (ER) | payer BC ==
[2017-01-06] MEDS ORDERED: SODIUM CHLORIDE 0.9% 1,000 ML IV STA (15:18)
[2017-01-06] MEDS ORDERED: RX INFO: IV CONTRAST WAS GIVEN 1 EACH MISC MISCELLANE PRN (15:18)
[2017-01-06] MEDS ORDERED: methylPREDNISolone SOD SUCCI 125 MG/2 ML VIAL IV STA (15:18)
[2017-01-06] MEDS ORDERED: IPRATROPIUM-ALBUTEROL 3 ML NEB INHALATION STA (15:18)
--- NOTE | 2017-01-06 15:31 | ED ---
SOB HPI - General Chief Complaint: Shortness of Breath Stated Complaint: Diff Breathing Time Seen by Provider: 01/06/17 15:10 Source: patient Mode of arrival: ambulatory Limitations: no limitations - History of Present Illness Initial Comments: Patient presents with shortness of breath and wheezing. Patient states she has a history of asthma that started following her PE 3 years ago, for which she completed 6 months of Coumadin. No longer on anticoagulation. She states she had wheezing and shortness of breath during her , shortly after she gave she had multiple rounds of steroids and inhalers without resolution, CT was ordered that showed a pulmonary embolism. States she was smoking at the time, and had been on control previously. Patient states symptoms today feel similar to her previous PE. 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 Patient does states she's had a mild cough recently which usually triggers or wheezing. Patient states symptoms have been controlled with her nebulizer treatments at home up until the past 2 days where she feels like they're no longer working. Last nebulizer treatment 7 AM this morning. No recent steroid or antibiotic use. Patient states she does use Qvar at home. Complaint: shortness of breath Onset/Timin -: week(s) - Related Data Home Medications Medication Instructions Recorded Confirmed Albuterol Nebulized [Ventolin 2.5 mg INHALATION RT-QID 01/06/17 01/06/17 Nebulized] Budesonide [Pulmicort] 0.5 mg INHALATION RT-BID 01/06/17 01/06/17 Previous Rx's Medication Instructions Recorded Montelukast [Singulair] 10 mg PO HS #30 tab 09/10/14 Albuterol Nebulized [Ventolin 2.5 mg INHALATION Q4H PRN #30 nebu 01/06/17 Nebulized] Doxycycline [Vibramycin] 100 mg PO Q12HR #20 capsule 01/06/17 predniSONE 40 mg PO DAILY #10 tab 01/06/17 Allergies Allergy/AdvReac Type Severity Reaction Status Date / Time azithromycin [From Zithromax] Allergy Rash/Hives Verified 01/06/17 15:22 Review of Systems ROS Statement: Those systems with pertinent positive or pertinent negative responses have been documented in the HPI. ROS Other: All systems not noted in ROS Statement are negative. Constitutional: Denies: fever, chills, weakness Eyes: Denies: vision change ENT: Denies: ear pain, throat pain, congestion Respiratory: Reports: cough, dyspnea, wheezes. Denies: hemoptysis, stridor Cardiovascular: Denies: chest pain, palpitations Endocrine: Denies: fatigue Gastrointestinal: Denies: abdominal pain, nausea, vomiting Genitourinary: Denies: urgency, dysuria, frequency, hematuria Musculoskeletal: Denies: back pain Skin: Denies: rash Neurological: Denies: headache, confusion Past Medical History Past Medical History: Asthma, Pulmonary Embolus (PE) Additional Past Medical History / Comment(s): PE 2015. HEARTBURN NOW, ALONG W/ Gallstones. PINCHED SCIATIC NERVE LT HIP, SCOLIOSIS. History of Any Multi-Drug Resistant Organisms: None Reported Past Surgical History: Cholecystectomy Additional Past Surgical History / Comment(s): D & C 2011 Past Anesthesia/Blood Transfusion Reactions: No Reported Reaction Past Psychological History: Anxiety Smoking Status: Former smoker Past Alcohol Use History: Occasional Past Drug Use History: None Reported - Past Family History Father Family Medical History: Cancer Mother Family Medical History: Cancer General Exam - General Exam Comments Initial Comments: Sitting up in chair. Patient has mild conversational dyspnea. Patient has wheezing audible from across the bed. Calm, pleasant. Does not appear in pain. Limitations: no limitations General appearance: alert Head exam: Present: atraumatic, normocephalic Eye exam: Present: normal appearance, PERRL, EOMI ENT exam: Present: mucous membranes moist, normal external ear exam Neck exam: Present: normal inspection Respiratory exam: Present: wheezes, prolonged expiratory. Absent: respiratory distress, rales, rhonchi, stridor, accessory muscle use, decreased breath sounds Cardiovascular Exam: Present: regular rate, normal rhythm GI/Abdominal exam: Present: soft. Absent: distended, tenderness, guarding, rebound, rigid Neurological exam: Present: alert, oriented X3 Psychiatric exam: Present: normal affect, normal mood Course Vital Signs 01/06/17 01/06/17 01/06/17 14:14 15:56 16:05 Temperature 97.8 F Pulse Rate 102 H 94 91 Respiratory 24 Rate Blood Pressure 140/79 O2 Sat by Pulse 95 Oximetry 10/10/17 10/10/17 10/10/17 16:15 16:16 16:25 Temperature Pulse Rate 87 87 91 Respiratory Rate Blood Pressure O2 Sat by Pulse Oximetry Medical Decision Making - Medical Decision Making Given patient's history of PE, no longer on anticoagulation, patient states she is concerned she has another PE and has had similar symptoms to that time she had a PE. We will get a CT to rule out pulmonary embolism. We'll give DuoNeb treatments and IV steroids. WBC mildly elevated. No other significant lab abnormalities. CT negative for PE. Patient updated with poor results. Patient states symptoms improved. Wheezing resolved on exam. Patient feels comfortable going home at this time. Patient agrees to follow-up with her primary care physician this week. 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 Patient requests refill of her albuterol nebulizer medication as she is almost out. Patient given albuterol, doxycycline , prednisone prescription. Return immediately new or worsening symptoms. Patient understands and agrees. - Lab Data Result diagrams: 01/06/17 15:50 01/06/17 15:50 Lab Results 01/06/17 01/06/17 01/06/17 Range/Units 15:50 15:50 15:50 WBC 14.3 H (3.8-10.6) k/uL RBC 5.21 (3.80-5.40) m/uL Hgb 15.8 (11.4-16.0) gm/dL Hct 48.3 H (34.0-46.0) % MCV 92.8 (80.0-100.0) fL MCH 30.3 (25.0-35.0) pg MCHC 32.6 (31.0-37.0) g/dL RDW 13.1 (11.5-15.5) % Plt Count 385 (150-450) k/uL Neutrophils % 56 % Lymphocytes % 24 % Monocytes % 5 % Eosinophils % 13 % Basophils % 1 % Neutrophils # 8.0 H (1.3-7.7) k/uL Lymphocytes # 3.4 (1.0-4.8) k/uL Monocytes # 0.6 (0-1.0) k/uL Eosinophils # 1.9 H (0-0.7) k/uL Basophils # 0.1 (0-0.2) k/uL PT (9.0-12.0) sec INR (<1.2) APTT (22.0-30.0) sec Sodium 142 (137-145) mmol/L Potassium 4.1 (3.5-5.1) mmol/L Chloride 105 (98-107) mmol/L Carbon Dioxide 26 (22-30) mmol/L Anion Gap 11 mmol/L BUN 17 (7-17) mg/dL Creatinine 0.88 (0.52-1.04) mg/dL Est GFR (MDRD) Af Amer >60 (>60 ml/min/1.73 sqM) Est GFR (MDRD) Non-Af >60 (>60 ml/min/1.73 sqM) Glucose 102 H (74-99) mg/dL Calcium 10.1 (8.4-10.2) mg/dL Magnesium 1.9 (1.6-2.3) mg/dL Troponin I (0.000-0.034) ng/mL Urine Color Urine Appearance (Clear) Urine pH (5.0-8.0) Ur Specific [employer] (1.001-1.035) Urine Protein (Negative) Urine Glucose (UA) (Negative) Urine Ketones (Negative) Urine Blood (Negative) Urine Nitrite (Negative) Urine Bilirubin (Negative) Urine Urobilinogen (<2.0) mg/dL Ur Leukocyte Esterase (Negative) Urine RBC (0-5) /hpf Urine WBC (0-5) /hpf Ur Squamous Epith Cells (0-4) /hpf Urine Mucus (None) /hpf Urine HCG, Qual Not Detected (Not Detectd) 01/06/17 01/06/17 01/06/17 Range/Units 15:50 15:50 15:50 WBC (3.8-10.6) k/uL RBC (3.80-5.40) m/uL Hgb (11.4-16.0) gm/dL Hct (34.0-46.0) % MCV (80.0-100.0) fL MCH (25.0-35.0) pg MCHC (31.0-37.0) g/dL RDW (11.5-15.5) % Plt Count (150-450) k/uL Neutrophils % % Lymphocytes % % Monocytes % % Eosinophils % % Basophils % % Neutrophils # (1.3-7.7) k/uL Lymphocytes # (1.0-4.8) k/uL Monocytes # (0-1.0) k/uL Eosinophils # (0-0.7) k/uL Basophils # (0-0.2) k/uL PT 9.9 (9.0-12.0) sec INR 1.0 (<1.2) APTT 26.5 (22.0-30.0) sec Sodium (137-145) mmol/L Potassium (3.5-5.1) mmol/L Chloride (98-107) mmol/L Carbon Dioxide (22-30) mmol/L Anion Gap mmol/L BUN (7-17) mg/dL Creatinine (0.52-1.04) mg/dL Est GFR (MDRD) Af Amer (>60 ml/min/1.73 sqM) Est GFR (MDRD) Non-Af (>60 ml/min/1.73 sqM) Glucose (74-99) mg/dL Calcium (8.4-10.2) mg/dL Magnesium (1.6-2.3) mg/dL Troponin I <0.012 (0.000-0.034) ng/mL Urine Color Yellow Urine Appearance Clear (Clear) Urine pH 5.5 (5.0-8.0) Ur Specific [employer] 1.026 (1.001-1.035) Urine Protein Negative (Negative) Urine Glucose (UA) Negative (Negative) Urine Ketones Negative (Negative) Urine Blood Trace H (Negative) Urine Nitrite Negative (Negative) Urine Bilirubin Negative (Negative) Urine Urobilinogen <2.0 (<2.0) mg/dL Ur Leukocyte Esterase Negative (Negative) Urine RBC 1 (0-5) /hpf Urine WBC <1 (0-5) /hpf Ur Squamous Epith Cells 1 (0-4) /hpf Urine Mucus Rare H (None) /hpf Urine HCG, Qual (Not Detectd) Disposition Clinical Impression: SOB (shortness of breath), Wheezing Disposition: HOME SELF-CARE Condition: Good Instructions: Acute Bronchitis (ED) Additional Instructions: Follow-up primary care physician this week. Follow-up with your cementer machine applicator if symptoms persist. Prescriptions: Albuterol Nebulized [Ventolin Nebulized] 2.5 mg INHALATION Q4H PRN #30 nebu PRN Reason: Wheezing Doxycycline [Vibramycin] 100 mg PO Q12HR #20 capsule predniSONE 40 mg PO DAILY #10 tab Referrals: Chandan Lambert MD [Primary Care Provider] - 1-2 days
[2017-01-06 16:06] LABS: Appearance,Urine Clear (Clear); Bilirubin,Urine Negative (Negative); Glucose,Urine (UA) Negative (Negative); Ketones,Urine Negative (Negative); Leukocyte Esterase,Urine Negative (Negative); Mucus,Urine Rare /hpf; Nitrite,Urine Negative (Negative); PH, Urine 5.5 (5.0-8.0); Particle Count 2890; Protein,Urine Negative (Negative); RBC,Urine 1 /hpf (0-5); Specific Gravity,Urine 1.026 (1.001-1.035); Squamous Epithelial Cell,Urine 1 /hpf (0-4); UA Billing (MACRO vs. MICRO) MICRO; Urobilinogen,Urine <2.0 mg/dL (<2.0); WBC,Urine <1 /hpf (0-5)
[2017-01-06 16:14] LABS: Partial Thromboplastin Time 26.5 sec (22.0-30.0); Prothrombin Time 9.9 sec (9.0-12.0)
[2017-01-06 16:17] LABS: Anion Gap 11 mmol/L; Basophils # (A) 0.1 k/uL (0-0.2); Basophils % (A) 1 %; Blood Urea Nitrogen 17 mg/dL (7-17); CH 30.2; CHCM 32.7; Calcium 10.1 mg/dL (8.4-10.2); Carbon Dioxide 26 mmol/L (22-30); Chloride 105 mmol/L (98-107); Eosinophils # (A) 1.9 k/uL (0-0.7); Eosinophils % (A) 13 %; Glucose 102 mg/dL (74-99); HCT 48.3 % (34.0-46.0); HDW 2.59; HGB 15.8 gm/dL (11.4-16.0); Luc # (Auto) 0.25; Luc % (Auto) 2; Lymphocytes # (A) 3.4 k/uL (1.0-4.8); Lymphocytes % (A) 24 %; MCH 30.3 pg (25.0-35.0); MCHC 32.6 g/dL (31.0-37.0); MCV 92.8 fL (80.0-100.0); Magnesium 1.9 mg/dL (1.6-2.3); Mean Platelet Volume 7.2; Monocytes # (A) 0.6 k/uL (0-1.0); Monocytes % (A) 5 %; Neutrophils % (A) 56 %; Non-African American GFR(MDRD) >60 (>60 ml/min/1.73 sqM); Potassium 4.1 mmol/L (3.5-5.1); RBC 5.21 m/uL (3.80-5.40); RDW 13.1 % (11.5-15.5); Sodium 142 mmol/L (137-145); WBC 14.3 k/uL (3.8-10.6); WBC (Perox) 13.74
--- NOTE | 2017-01-06 16:47 | CT ---
EXAMINATION TYPE: CT chest angio for PE DATE OF EXAM: 01/06/2017 COMPARISON: 10/12/2014 HISTORY: Difficulty breathing. History of asthma and PE. CT DLP: 483.90 mGycm Automated exposure control for dose reduction was used. CONTRAST: CT Chest for pulmonary embolism performed with with IV Contrast, patient injected with 71 mL of Omnip aque 350. There are 3-D post processed images. FINDINGS: There is mild linear density in the anterior left upper lobe. There is no evidence of a pulmonary mas s. There is mild lingula infiltrate. There is no pleural effusion. Heart size is normal. Thoracic aorta appears normal. I see no filling defects in the pulmonary arteri es. Contrast in the pulmonary arteries is suboptimal. There are no hilar masses. There is no mediasti nal adenopathy. Bony thorax is intact. IMPRESSION: Suboptimal exam. No evidence of pulmonary embolism. There is scarring and atelectasis in the lingula left upper lobe that is increased compared to old exam.
[2017-01-06 17:08] VITALS: BP 131/66; PULSE 89; RESP 20; TEMP 98.5
== END 2017-01-06 17:08 | disposition home or self-care (01) ==
LOC: EC 13:57
DX: J45.909 Unspecified asthma, uncomplicated (principal); Z86.711 Personal history of pulmonary embolism; Z88.1 Allergy status to other antibiotic agents; Z79.51 Long term (current) use of inhaled steroids; Z79.899 Other long term (current) drug therapy; Z87.891 Personal history of nicotine dependence
CPT/HCPCS: 99285 ×2; 96374 ×2; 96361 ×2; 36415; 94640 ×2; 93005; 80048; 83735; 84484; 85025; 85610; 85730; 81001; 81025; 71275; J2930; Q9967

== ENCOUNTER 2017-02-20 11:04 | Emergency (ER) | payer BC ==
[2017-02-20] MEDS ORDERED: IPRATROPIUM 0.5 MG/2.5 ML NEBU INHALATION STA (11:33)
[2017-02-20] MEDS ORDERED: ALBUTEROL NEBULIZED 2.5 MG/3 ML INHALATION STA (11:33)
[2017-02-20] MEDS ORDERED: DEXAMETHASONE SOD PHOSPHATE 10 MG/ML 1 ML VIAL IV STA (11:35)
[2017-02-20] MEDS ORDERED: SODIUM CHLORIDE 0.9% 1,000 ML IV ONE (11:35)
--- NOTE | 2017-02-20 11:37 | ED ---
General Adult HPI - General Chief complaint: Shortness of Breath Stated complaint: JAMES Time Seen by Provider: 02/20/17 11:27 Source: patient, RN notes reviewed Mode of arrival: wheelchair Limitations: no limitations - History of Present Illness Initial comments: 31-year-old female with past medical history of asthma presents with one-week history of cough and dyspnea. Patient's cough has been productive of white yellow sputum. Denies fever. Patient states that on Thursday she ran out of her albuterol, this medication was refilled yesterday she took 3 treatments with minimal relief. She also took 40 mg of prednisone this morning. Patient complains of chest pain worse with cough. Denies any nausea vomiting or diarrhea. Denies significant URI symptoms. 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 Denies tobacco use. - Related Data Home Medications Medication Instructions Recorded Confirmed Albuterol Inhaler [Ventolin Hfa 2 puff INHALATION RT-QID PRN 02/20/17 02/20/17 Inhaler] Albuterol Nebulized [Ventolin 2.5 mg INHALATION RT-Q4H PRN 02/20/17 02/20/17 Nebulized] Ipratropium/Albuterol Sulfate 1 puff INHALATION RT-QID PRN 02/20/17 02/20/17 [Combivent Respimat Inhaler] predniSONE 40 mg PO DAILY PRN 02/20/17 02/20/17 Previous Rx's Medication Instructions Recorded Azithromycin [Zithromax Z-pack] 0 mg PO DIRECTED #6 tab 02/20/17 predniSONE 50 mg PO DAILY #5 tab 02/20/17 Allergies Allergy/AdvReac Type Severity Reaction Status Date / Time azithromycin [From Zithromax] Allergy Rash/Hives Verified 02/20/17 11:30 Review of Systems ROS Statement: Those systems with pertinent positive or pertinent negative responses have been documented in the HPI. ROS Other: All systems not noted in ROS Statement are negative. Past Medical History Past Medical History: Asthma, Pulmonary Embolus (PE) Additional Past Medical History / Comment(s): PE 2014. HEARTBURN NOW, ALONG W/ Gallstones. PINCHED SCIATIC NERVE LT HIP, SCOLIOSIS. History of Any Multi-Drug Resistant Organisms: None Reported Past Surgical History: Cholecystectomy Additional Past Surgical History / Comment(s): D & C 2011 Past Anesthesia/Blood Transfusion Reactions: No Reported Reaction Past Psychological History: Anxiety Smoking Status: Former smoker Past Alcohol Use History: Occasional Past Drug Use History: None Reported - Past Family History Father Family Medical History: Cancer Mother Family Medical History: Cancer General Exam Limitations: no limitations General appearance: alert, in distress Head exam: Present: atraumatic, normocephalic Eye exam: Present: normal appearance, PERRL ENT exam: Present: normal exam Neck exam: Present: normal inspection. Absent: tenderness, meningismus Respiratory exam: Present: respiratory distress, wheezes, accessory muscle use, prolonged expiratory Cardiovascular Exam: Present: normal rhythm, tachycardia GI/Abdominal exam: Present: soft. Absent: distended, tenderness Extremities exam: Present: normal inspection, normal capillary refill. Absent: pedal edema Neurological exam: Present: alert, oriented X3 Psychiatric exam: Present: normal affect, normal mood Skin exam: Present: warm, dry, intact Course Vital Signs 02/20/17 02/20/17 02/20/17 11:20 12:19 12:21 Temperature 97.9 F Pulse Rate 116 H 102 H 106 H Respiratory 22 30 H 28 H Rate Blood Pressure 135/66 121/73 O2 Sat by Pulse 92 L 92 L Oximetry 02/20/17 12:59 Temperature Pulse Rate 116 H Respiratory Rate Blood Pressure O2 Sat by Pulse Oximetry - Reevaluation(s) Reevaluation #1: 02/20/17 13:31 On reevaluation, patient does have increased air entry, persistent end expiratory wheeze Medical Decision Making - Medical Decision Making 31-year-old female with history of asthma and pulmonary embolism percent and dyspnea. Patient has significant wheezing throughout all lung oscar. Complains of severe cough. She had been out of her medication which is the reason for worsening symptoms. CT is reviewed from approximately one month ago which was negative for PE, with similar chief complaint and presentation. I have almost no suspicion for PE in this clinical setting. Patient is given albuterol, Atrovent, and steroids. Reevaluation she is somewhat improved. Medic was patient to stay in the hospital for continued treatment. She declines stating she has a 2-year-old at home with no one to watch. The patient be discharged with strict return instructions. She will use her home nebulizer. She started on antibiotics and steroids. - Lab Data Result diagrams: 02/20/17 12:20 02/20/17 12:20 Lab Results 02/20/17 02/20/17 02/20/17 Range/Units 12:20 12:20 12:20 WBC 14.7 H (3.8-10.6) k/uL RBC 4.94 (3.80-5.40) m/uL Hgb 14.5 (11.4-16.0) gm/dL Hct 44.5 (34.0-46.0) % MCV 90.1 (80.0-100.0) fL MCH 29.3 (25.0-35.0) pg MCHC 32.5 (31.0-37.0) g/dL RDW 14.0 (11.5-15.5) % Plt Count 279 (150-450) k/uL Neutrophils % 85 % Lymphocytes % 6 % Monocytes % 3 % Eosinophils % 5 % Basophils % 1 % Neutrophils # 12.5 H (1.3-7.7) k/uL Lymphocytes # 0.9 L (1.0-4.8) k/uL Monocytes # 0.4 (0-1.0) k/uL Eosinophils # 0.7 (0-0.7) k/uL Basophils # 0.1 (0-0.2) k/uL Sodium (137-145) mmol/L Potassium (3.5-5.1) mmol/L Chloride (98-107) mmol/L Carbon Dioxide (22-30) mmol/L Anion Gap mmol/L BUN (7-17) mg/dL Creatinine (0.52-1.04) mg/dL Est GFR (MDRD) Af Amer (>60 ml/min/1.73 sqM) Est GFR (MDRD) Non-Af (>60 ml/min/1.73 sqM) Glucose (74-99) mg/dL Calcium (8.4-10.2) mg/dL Total Bilirubin (0.2-1.3) mg/dL AST (14-36) U/L ALT (9-52) U/L Alkaline Phosphatase (38-126) U/L NT-Pro-B Natriuret Pep pg/mL Total Protein (6.3-8.2) g/dL Albumin (3.5-5.0) g/dL Urine Color Yellow Urine Appearance Cloudy H (Clear) Urine pH 5.5 (5.0-8.0) Ur Specific [employer] 1.024 (1.001-1.035) Urine Protein Trace H (Negative) Urine Glucose (UA) Negative (Negative) Urine Ketones Negative (Negative) Urine Blood Negative (Negative) Urine Nitrite Negative (Negative) Urine Bilirubin Negative (Negative) Urine Urobilinogen <2.0 (<2.0) mg/dL Ur Leukocyte Esterase Trace H (Negative) Urine WBC 1 (0-5) /hpf Ur Squamous Epith Cells 5 H (0-4) /hpf Urine Mucus Occasional H (None) /hpf Urine HCG, Qual Not Detected (Not Detectd) 02/20/17 02/20/17 Range/Units 12:20 12:20 WBC (3.8-10.6) k/uL RBC (3.80-5.40) m/uL Hgb (11.4-16.0) gm/dL Hct (34.0-46.0) % MCV (80.0-100.0) fL MCH (25.0-35.0) pg MCHC (31.0-37.0) g/dL RDW (11.5-15.5) % Plt Count (150-450) k/uL Neutrophils % % Lymphocytes % % Monocytes % % Eosinophils % % Basophils % % Neutrophils # (1.3-7.7) k/uL Lymphocytes # (1.0-4.8) k/uL Monocytes # (0-1.0) k/uL Eosinophils # (0-0.7) k/uL Basophils # (0-0.2) k/uL Sodium 139 (137-145) mmol/L Potassium 4.2 (3.5-5.1) mmol/L Chloride 108 H (98-107) mmol/L Carbon Dioxide 22 (22-30) mmol/L Anion Gap 9 mmol/L BUN 15 (7-17) mg/dL Creatinine 0.90 (0.52-1.04) mg/dL Est GFR (MDRD) Af Amer >60 (>60 ml/min/1.73 sqM) Est GFR (MDRD) Non-Af >60 (>60 ml/min/1.73 sqM) Glucose 110 H (74-99) mg/dL Calcium 9.7 (8.4-10.2) mg/dL Total Bilirubin 0.6 (0.2-1.3) mg/dL AST 19 (14-36) U/L ALT 31 (9-52) U/L Alkaline Phosphatase 82 (38-126) U/L NT-Pro-B Natriuret Pep 30 pg/mL Total Protein 7.3 (6.3-8.2) g/dL Albumin 4.3 (3.5-5.0) g/dL Urine Color Urine Appearance (Clear) Urine pH (5.0-8.0) Ur Specific [employer] (1.001-1.035) Urine Protein (Negative) Urine Glucose (UA) (Negative) Urine Ketones (Negative) Urine Blood (Negative) Urine Nitrite (Negative) Urine Bilirubin (Negative) Urine Urobilinogen (<2.0) mg/dL Ur Leukocyte Esterase (Negative) Urine WBC (0-5) /hpf Ur Squamous Epith Cells (0-4) /hpf Urine Mucus (None) /hpf Urine HCG, Qual (Not Detectd) Disposition Clinical Impression: Asthma with exacerbation Disposition: HOME SELF-CARE Condition: Fair Instructions: Asthma (ED) Prescriptions: Azithromycin [Zithromax Z-pack] 0 mg PO DIRECTED #6 tab predniSONE 50 mg PO DAILY #5 tab Referrals: Chandan Lambert MD [Primary Care Provider] - 1-2 days Time of Disposition: 13:33
[2017-02-20 12:36] LABS: Basophils # (A) 0.1 k/uL (0-0.2); Basophils % (A) 1 %; CH 29.2; CHCM 32.5; Eosinophils # (A) 0.7 k/uL (0-0.7); Eosinophils % (A) 5 %; HCT 44.5 % (34.0-46.0); HGB 14.5 gm/dL (11.4-16.0); Luc # (Auto) 0.05; Luc % (Auto) 0; Lymphocytes # (A) 0.9 k/uL (1.0-4.8); Lymphocytes % (A) 6 %; MCH 29.3 pg (25.0-35.0); MCHC 32.5 g/dL (31.0-37.0); MCV 90.1 fL (80.0-100.0); Mean Platelet Volume 8.1; Monocytes # (A) 0.4 k/uL (0-1.0); Monocytes % (A) 3 %; Neutrophils # (A) 12.5 k/uL (1.3-7.7); Neutrophils % (A) 85 %; RBC 4.94 m/uL (3.80-5.40); WBC 14.7 k/uL (3.8-10.6)
[2017-02-20 12:43] LABS: Appearance,Urine Cloudy (Clear); Bilirubin,Urine Negative (Negative); Glucose,Urine (UA) Negative (Negative); Ketones,Urine Negative (Negative); Leukocyte Esterase,Urine Trace (Negative); Mucus,Urine Occasional /hpf; Nitrite,Urine Negative (Negative); PH, Urine 5.5 (5.0-8.0); Particle Count 6462; Protein,Urine Trace (Negative); Specific Gravity,Urine 1.024 (1.001-1.035); Squamous Epithelial Cell,Urine 5 /hpf (0-4); UA Billing (MACRO vs. MICRO) MICRO; Urobilinogen,Urine <2.0 mg/dL (<2.0); WBC,Urine 1 /hpf (0-5)
[2017-02-20 12:54] LABS: ALT 31 U/L (9-52); AST 19 U/L (14-36); Alkaline Phosphatase 82 U/L (38-126); Anion Gap 9 mmol/L; Blood Urea Nitrogen 15 mg/dL (7-17); Calcium 9.7 mg/dL (8.4-10.2); Carbon Dioxide 22 mmol/L (22-30); Chloride 108 mmol/L (98-107); Glucose 110 mg/dL (74-99); Non-African American GFR(MDRD) >60 (>60 ml/min/1.73 sqM); Potassium 4.2 mmol/L (3.5-5.1); Sodium 139 mmol/L (137-145); Total Bilirubin 0.6 mg/dL (0.2-1.3); Total Protein 7.3 g/dL (6.3-8.2)
--- NOTE | 2017-02-20 13:11 | XR ---
EXAMINATION TYPE: XR chest 2V DATE OF EXAM: 02/20/2017 COMPARISON: 02/08/2016 HISTORY: Shortness of breath and asthma. TECHNIQUE: Frontal and lateral views of the chest are obtained. FINDINGS: There is no focal air space opacity, pleural effusion, or pneumothorax seen. The cardiac silhouette size is within normal limits. The osseous structures are intact. IMPRESSION: No acute cardiopulmonary process.
[2017-02-20 13:36] VITALS: BP 134/68; PULSE 110; RESP 20; TEMP 98.3
== END 2017-02-20 13:46 | disposition home or self-care (01) ==
LOC: EC 11:04
DX: J45.901 Unspecified asthma with (acute) exacerbation (principal); Z87.891 Personal history of nicotine dependence; Z88.1 Allergy status to other antibiotic agents
CPT/HCPCS: 36415; 94640; 93005; 83880; 80053; 85025; 81001; 81025; 71020; 99285; 96374; 96361; J1100

== ENCOUNTER 2017-09-12 15:54 | Emergency (ER) | payer BC ==
[2017-09-12 16:03] VITALS: TEMP 98.2
[2017-09-12] MEDS ORDERED: methylPREDNISolone SOD SUCCI 125 MG/2 ML VIAL IV STA (16:33)
[2017-09-12] MEDS ORDERED: methylPREDNISolone SOD SUCCI 125 MG/2 ML VIAL IM ONE (16:38)
[2017-09-12 16:51] VITALS: RESP 16
[2017-09-12] MEDS: IPRATROPIUM-ALBUTEROL 3 ML NEB INHALATION STA ×2 (17:06→17:07)
--- NOTE | 2017-09-12 17:31 | ED ---
SOB HPI - General Chief Complaint: Shortness of Breath Stated Complaint: Diff Breathing Time Seen by Provider: 09/12/17 16:12 Source: patient Mode of arrival: ambulatory Limitations: no limitations - History of Present Illness Initial Comments: 32-year-old female with past medical history of asthma presenting for evaluation shortness of breath for the last month. She states that she is having insurance issues at this time and is unable to get proper treatment for her asthma including rescue inhalers and steroids. States that she has been using updrafts at home without improvement in her symptoms. Worse with ambulation and exertion improves with sitting and resting. Denies any symptoms concerning for PE including lower extremity pain or swelling, long trips or travel, exogenous estrogens, recent surgeries, hemoptysis. - Related Data Home Medications Medication Instructions Recorded Confirmed Acetaminophen Tab [Tylenol] 500 mg PO Q6HR 09/12/17 09/12/17 Previous Rx's Medication Instructions Recorded Albuterol Nebulized [Ventolin 2.5 mg INHALATION RT-Q4H PRN #30 09/12/17 Nebulized] nebu predniSONE 50 mg PO DAILY #5 tab 09/12/17 Allergies Allergy/AdvReac Type Severity Reaction Status Date / Time azithromycin [From Zithromax] Allergy Rash/Hives Verified 09/12/17 16:00 Review of Systems ROS Statement: Those systems with pertinent positive or pertinent negative responses have been documented in the HPI. ROS Other: All systems not noted in ROS Statement are negative. Constitutional: Denies: fever, chills Eyes: Denies: eye pain, vision change ENT: Denies: ear pain, throat pain Respiratory: Reports: dyspnea, wheezes. Denies: cough, hemoptysis, stridor Cardiovascular: Denies: chest pain, palpitations Endocrine: Denies: fatigue, polydipsia Gastrointestinal: Denies: abdominal pain, nausea, vomiting Genitourinary: Denies: urgency, dysuria Musculoskeletal: Denies: back pain, arthralgia, myalgia Skin: Denies: rash, lesions Neurological: Denies: headache, weakness Psychiatric: Denies: anxiety, depression Hematological/Lymphatic: Denies: easy bleeding, easy bruising Past Medical History Past Medical History: Asthma, Pulmonary Embolus (PE) Additional Past Medical History / Comment(s): PE 2015. HEARTBURN NOW, ALONG W/ Gallstones. PINCHED SCIATIC NERVE LT HIP, SCOLIOSIS. History of Any Multi-Drug Resistant Organisms: None Reported Past Surgical History: Cholecystectomy Additional Past Surgical History / Comment(s): D & C 2011 Past Anesthesia/Blood Transfusion Reactions: No Reported Reaction Past Psychological History: Anxiety Smoking Status: Former smoker Past Alcohol Use History: Occasional Past Drug Use History: None Reported - Past Family History Father Family Medical History: Cancer Mother Family Medical History: Cancer General Exam Limitations: no limitations General appearance: alert, in no apparent distress Head exam: Present: atraumatic, normocephalic, normal inspection Eye exam: Present: normal appearance, PERRL, EOMI. Absent: scleral icterus, conjunctival injection, periorbital swelling ENT exam: Present: normal exam, mucous membranes moist Neck exam: Present: normal inspection. Absent: tenderness, meningismus, lymphadenopathy Respiratory exam: Present: wheezes. Absent: respiratory distress, rales, rhonchi, stridor, chest wall tenderness, accessory muscle use Cardiovascular Exam: Present: regular rate, normal rhythm, normal heart sounds. Absent: systolic murmur, diastolic murmur, rubs, gallop, clicks GI/Abdominal exam: Present: soft, normal bowel sounds. Absent: distended, tenderness, guarding, rebound, rigid Rectal exam: Present: deferred Extremities exam: Present: normal inspection, full ROM, normal capillary refill. Absent: tenderness, pedal edema, joint swelling, calf tenderness Back exam: Present: normal inspection Neurological exam: Present: alert, oriented X3, CN II-XII intact Psychiatric exam: Present: normal affect, normal mood Skin exam: Present: warm, dry, intact, normal color. Absent: rash Course Vital Signs 09/12/17 09/12/17 09/12/17 16:00 16:15 17:11 Temperature 98.2 F Pulse Rate 99 100 Respiratory 22 16 Rate Blood Pressure 135/87 O2 Sat by Pulse 95 Oximetry 09/12/17 09/12/17 09/12/17 17:34 18:54 19:02 Temperature Pulse Rate 108 H 100 104 H Respiratory Rate Blood Pressure O2 Sat by Pulse Oximetry 09/12/17 19:20 Temperature 98.2 F Pulse Rate 91 Respiratory 16 Rate Blood Pressure 132/68 O2 Sat by Pulse 98 Oximetry Medical Decision Making - Medical Decision Making 32-year-old female with past medical history of asthma that is poorly controlled at home due to insurance issues presenting for evaluation of shortness of breath. On physical examination she has no increased work of breathing there is no accessory muscle use. Lungs however reveal wheezing throughout. Patient is perc negative. Concern for asthma exacerbation. Patient given breathing treatments and steroids. On reevaluation had marketed improvement in all symptoms. Given prescription for refills on nebulized treatments and prescription for steroids. Advised follow-up with primary care physician. Given return instructions. Patient acknowledged an understanding of all information provided and agreed with this plan of care. Disposition Clinical Impression: Asthma exacerbation Disposition: HOME SELF-CARE Condition: Stable Instructions: Asthma (ED) Additional Instructions: Please use medication as discussed. Please follow up with family doctor if symptoms have not improved over the next two days. Please return to the emergency room if your symptoms increase or worsen or for any other concerns. Prescriptions: Albuterol Nebulized [Ventolin Nebulized] 2.5 mg INHALATION RT-Q4H PRN #30 nebu PRN Reason: Shortness Of Breath predniSONE 50 mg PO DAILY #5 tab Is patient prescribed a controlled substance at d/c from ED?: No Referrals: Chandan Lambert MD [Primary Care Provider] - 1-2 days Time of Disposition: 18:37
[2017-09-12] MEDS ORDERED: ALBUTEROL NEBULIZED 2.5 MG/3 ML INHALATION STA (18:20)
[2017-09-12] MEDS ORDERED: ALBUTEROL INHALER 60 PUFF/8 GM INHALER INHALATION STA (19:14)
[2017-09-12 19:22] VITALS: BP 132/68; PULSE 91
== END 2017-09-12 19:24 | disposition home or self-care (01) ==
LOC: EC 15:54
DX: J45.901 Unspecified asthma with (acute) exacerbation (principal); Z87.891 Personal history of nicotine dependence; Z79.891 Long term (current) use of opiate analgesic; Z88.1 Allergy status to other antibiotic agents; Z53.8 Procedure and treatment not carried out for other reasons
CPT/HCPCS: 94640; 99284; 96372; J2930

== ENCOUNTER → 2018-05-26 | Outpatient (CLI) | payer BC ==
[2018-05-26 10:56] LABS: Basophils # (A) 0.1 k/uL (0-0.2); Basophils % (A) 1 %; Eosinophils # (A) 0.9 k/uL (0-0.7); Eosinophils % (A) 12 %; HGB 13.7 gm/dL (11.4-16.0); Lymphocytes # (A) 2.3 k/uL (1.0-4.8); Lymphocytes % (A) 30 %; MCH 28.1 pg (25.0-35.0); MCHC 31.1 g/dL (31.0-37.0); MCV 90.3 fL (80.0-100.0); Mean Platelet Volume 6.9; Monocytes # (A) 0.3 k/uL (0-1.0); Monocytes % (A) 5 %; Neutrophils % (A) 52 %; Platelet Count 262 k/uL (150-450); RBC 4.87 m/uL (3.80-5.40); RDW 13.5 % (11.5-15.5); WBC 7.7 k/uL (3.8-10.6)
[2018-05-26 16:25] LABS: T4, Free (Free Thyroxine) 1.1 ng/dL (0.80-1.80)
[2018-05-26 16:44] LABS: Albumin 3.9 g/dL (3.80-4.90); Albumin/Globulin Ratio 2.05 (1.60-3.17); Anion Gap 8.1 mmol/L (4.00-12.00); Calcium 8.9 mg/dL (8.7-10.3); Carbon Dioxide 24.9 mmol/L (21.6-31.8); Globulin 1.9 g/dL (1.6-3.3); LDL Cholesterol,Calculated 61.6 mg/dL (0.0-131.0); Potassium 4.4 mmol/L (3.5-5.5); Total Bilirubin 0.5 mg/dL (0.2-1.2); Total Protein 5.8 g/dL (6.2-8.2); VLDL Calculation 32.4 mg/dL (5.00-40.00)
== END | disposition home or self-care (01) ==
LOC: LABWHC1 09:36
PROVIDERS: ATTEND Family Medicine
DX: Z00.00 Encounter for general adult medical examination without abnormal findings (principal); J45.31 Mild persistent asthma with (acute) exacerbation; Z79.899 Other long term (current) drug therapy
CPT/HCPCS: 36415; 80053; 80061; 84439; 84443; 85025